=== PATIENT | female | born 1970 | race Caucasian/White ===

== ENCOUNTER 2016-11-05 17:38 | Emergency (ER) | payer OTHER ==
[~2016-11-05] VITALS: Ht 160 cm; Wt 102.0 kg
[~2016-11-05 17:38] MED LIST: ALBU0.086 INH; BENZ100 PO; CELE40TA PO; DUONI NEB; PERC10TA27 PO; PRAV40; SOMA350T PO; ZITH250T PO; [UNRECOGNIZED DRUG - CODE] PO
[2016-11-05 17:45] VITALS: BP 115/69; PULSE 79; RESP 18; TEMP 97.5; O2SAT 93
[2016-11-05 17:52] VITALS: BP 115/69; PULSE 74; RESP 18; TEMP 97.5; O2SAT 94
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
[2016-11-05] MEDS ORDERED: CITA40TA4 PO (22:56)
[2016-11-05] MEDS ORDERED: MORP1INJ IMPLANT (22:56)
[2016-11-05] MEDS ORDERED: VENTAER INH (22:57)
[2016-11-05] MEDS ORDERED: PANT40TA3 PO (22:57)
[2016-11-05] MEDS ORDERED: AMIT10TA6 PO (22:59)
[2016-11-05] MEDS ORDERED: CYCL1TAB29 PO (22:59)
[2016-11-05] MEDS ORDERED: OXYB5TAB10 PO (22:59)
[2016-11-05] MEDS ORDERED: REQU3TAB PO (22:59)
== END 2016-11-05 23:57 | disposition home or self-care (01) ==
LOC: NEPA 17:38
DX: M54.5 Low back pain (principal); Z04.41 Encounter for examination and observation following alleged adult rape; Z72.0 Tobacco use; F10.120 Alcohol abuse with intoxication, uncomplicated; Z79.891 Long term (current) use of opiate analgesic

== ENCOUNTER 2017-01-22 17:11 | Emergency (ER) | payer OTHER ==
[~2017-01-22] VITALS: Ht 160 cm; Wt 105.0 kg
[~2017-01-22 17:11] MED LIST changes: -ALBU0.086 INH; +AMIT10TA6 PO; -BENZ100 PO; -CELE40TA PO; +CITA40TA4 PO; +CYCL1TAB29 PO; -DUONI NEB; +MORP1INJ IMPLANT; +OXYB5TAB10 PO; +PANT40TA3 PO; -PERC10TA27 PO; -PRAV40; +REQU3TAB PO; -SOMA350T PO; +VENTAER INH; -ZITH250T PO; -[UNRECOGNIZED DRUG - CODE] PO
[2017-01-22 17:59] VITALS: BP 161/78; PULSE 88; RESP 16; TEMP 98.1; O2SAT 99
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
[2017-01-22 18:23] LABS: AUTOMATED NEUTROPHIL # 8.3 TH/MM3 (1.8-7.7); BASOPHIL # 0.1 TH/MM3 (0-0.2); BASOPHIL % 0.6 % (0.0-2.0); EOSINOPHIL # 0.1 TH/MM3 (0-0.4); EOSINOPHIL % 0.8 % (0.0-4.0); HEMATOCRIT 36.6 % (35.0-46.0); HEMO FLAGS DIFF FINAL; LYMPH % 20.8 % (9.0-44.0); LYMPHOCYTE # 2.5 TH/MM3 (1.0-4.8); MEAN CELL VOLUME 85.6 FL (80.0-100.0); MONO % 7.3 % (0.0-8.0); NEUT % 70.5 % (16.0-70.0); PLATELET COUNT 211 TH/MM3 (150-450); RED BLOOD COUNT 4.28 MIL/MM3 (4.00-5.30); RED CELL DISTRIBUTION WIDTH 13.8 % (11.6-17.2); WHITE BLOOD COUNT 11.9 TH/MM3 (4.0-11.0)
[2017-01-22 18:38] LABS: ANION GAP 7 MEQ/L (5-15); AST (GOT) 35 U/L (15-37); BICARBONATE 28.9 MEQ/L (21.0-32.0); BLOOD UREA NITROGEN 7 MG/DL (7-18); CHLORIDE 99 MEQ/L (98-107); GLOMERULAR FILTRATION RATE 67 ML/MIN (>89); POTASSIUM 3.2 MEQ/L (3.5-5.1); SODIUM (NA) 135 MEQ/L (136-145)
[2017-01-22 18:48] LABS: ALKALINE PHOSPHATASE 70 U/L (45-117); ALT (GPT) 40 U/L (10-53); TOTAL BILIRUBIN ADULT 0.4 MG/DL (0.2-1.0)
[2017-01-22] MEDS ORDERED: POTASSIUM CHLORIDE 20 MEQ CONTROLLED RELEASE TAB PO ONE (19:00)
[2017-01-22] MEDS ORDERED: PANT40TA3 PO (19:20)
[2017-01-22] MEDS ORDERED: METHY10 PO (19:20)
[2017-01-22] MEDS ORDERED: NITR1SUB3 SL (19:20)
[2017-01-22] MEDS ORDERED: CLON2TAB PO (19:20)
[2017-01-22] MEDS ORDERED: CLON1TAB PO (19:21)
[2017-01-22 19:41] VITALS: BP 119/65; PULSE 88; RESP 20; O2SAT 99
[2017-01-22 19:48] LABS: AMPHETAMINE, URINE NEG (NEG); BARBITURATES, URINE NEG (NEG); COCAINE, URINE NEG (NEG)
[2017-01-22] MEDS ORDERED: ALUMINUM/MAGNESIUM/SIMETH 30 ML CUP PO ONE (20:00)
[2017-01-22] MEDS ORDERED: PANTOPRAZOLE SOD 40 MG DELAYED RELEASE TAB PO ONE (20:00)
[2017-01-22] MEDS ORDERED: LIDOCAINE VISCOUS 2% SOLN 15 ML UDC PO ONE (20:00)
[2017-01-22 22:38] VITALS: BP 131/59; PULSE 89; RESP 18; O2SAT 98
[2017-01-23 02:14] VITALS: BP 122/62; PULSE 72; RESP 18; TEMP 98.1; O2SAT 98
[2017-01-23 06:18] VITALS: BP 111/63; PULSE 67; RESP 18; TEMP 97; O2SAT 98
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
[2017-01-23 08:52] VITALS: BP 111/63; TEMP 97
== END 2017-01-23 09:10 | disposition home or self-care (01) ==
LOC: NEPE 17:11 → NEPJ 01-23 09:10
DX: F43.20 Adjustment disorder, unspecified (principal); Z59.0 Homelessness; F12.90 Cannabis use, unspecified, uncomplicated; Z72.0 Tobacco use
CPT/HCPCS: 80053; 80307; 85025; 99284